=== PATIENT | male | born 1955 | race Caucasian/White ===

== ENCOUNTER → 2021-03-09 | Outpatient (CLI) | payer MEDICARE ==
[~2021-03-09] VITALS: Ht 180 cm; Wt 116.0 kg
[~2021-03-09] MED LIST: CATHETER FLUSH 10 ML SYR IV PRN; REGADENOSON 0.4 MG/5 ML SYR (LEXISCAN) IV ONE
[2021-03-09 09:41] LABS: ALANINE AMINOTRANSFERASE 22 U/L (0-55); ALBUMIN 4.2 GM/DL (3.2-4.5); ALKALINE PHOSPHATASE 60 U/L (40-136); BILIRUBIN,TOTAL 0.4 MG/DL (0.1-1.0); BUN/CREATININE RATIO 18; CALCIUM 9.5 MG/DL (8.5-10.1); CARBON DIOXIDE 25 MMOL/L (21-32); CHLORIDE 107 MMOL/L (98-107); CHOLESTEROL 114 MG/DL (< 200); CREATININE SERUM 1.05 MG/DL (0.60-1.30); GFR ESTIMATED > 60; GLUCOSE 201 MG/DL (70-105); HDL CHOLESTEROL 35 MG/DL (40-60); POTASSIUM 3.9 MMOL/L (3.6-5.0); SODIUM 139 MMOL/L (135-145); TOTAL PROTEIN 6.6 GM/DL (6.4-8.2); TRIGLYCERIDES 85 MG/DL (<150); VLDL CHOLESTEROL 17 MG/DL (5-40)
[2021-03-09 11:48] VITALS: BP 154/69
--- NOTE | 2021-03-10 11:07 | Cardiology Stress Test Report ---
Stress Test Report Date of Procedure/Referring: Date of Procedure: Mar 09, 2021 PCP Aristeo Gomez MD Admitting Physician Indications: CAD Baseline Heart Rate: 60 Baseline Blood Pressure: Blood Pressure Systolic: 154 Blood Pressure Diastolic: 69 Baseline Vitals Vital Signs Date Time Temp Pulse Resp B/P (MAP) Pulse Ox O2 Delivery O2 Flow Rate FiO2 03/09/21 11:48 60 154/69 (97) 96 Baseline EKG: Baseline EKG: NSR Summary After explaining the procedure to the patient, he signed a consent and then brought to the stress nuclear laboratory. Patient received 0.4 mg Lexiscan for stress test, ECG, heart rate and blood pressure were monitored continuously. Resting and stress dose of radio tracer were injected, imaging was acquired and reviewed in short axis, horizontal long axis and vertical long axis views. TID: 1.15 SSS: 0 SDS: 0 EF: 58 1. Patient tolerated Lexiscan well 2. Diaphragmatic attenuation with mild decreased uptake at the mid to apical inferior wall with no significant reversibility, no significant ischemia or infarction on SPECT images 3. Normal left ventricular size, EF 58% ARISTEO GOMEZ MD Mar 10, 2021 11:07
== END ==
LOC: CARD 09:30
PROVIDERS: ATTEND Internal Medicine Cardiovascular Disease
DX: I51.7 Cardiomegaly (principal); E78.2 Mixed hyperlipidemia; I25.10 Atherosclerotic heart disease of native coronary artery without angina pectoris; I10 Essential (primary) hypertension
CPT/HCPCS: 78452; 80053; 80061; 93017; 93306; A9502; 36415

== ENCOUNTER → 2021-03-23 | Outpatient (CLI) | payer MEDICARE ==
[~2021-03-23] MED LIST changes: +HOLD METFORMIN - RECEIVED CONTRAST 20 ML VIAL IV SCH; +IOHEXOL 350 MG/ML 100 ML (OMNIPAQUE 350) VIAL IV ONE; +NS 100 ML (IVPB) BAG IV ONE; -REGADENOSON 0.4 MG/5 ML SYR (LEXISCAN) IV ONE
[2021-03-23 07:41] LABS: CREATININE SERUM 0.96 MG/DL (0.60-1.30)
--- NOTE | 2021-03-23 09:01 | Diagnostic Imaging Report ---
INDICATION: Carotid stenosis. I have no previous for comparison. Post IV contrast-enhanced CT angiogram neck performed with 2-D and 3-D reconstructions. FINDINGS: The thoracic aortic arch shows scattered calcified plaque without stenosis or aneurysm. Mixed soft and hard plaque at the takeoff of the left common carotid results in less than 50% stenosis of that vessel. There are mild scattered calcified plaques in the subclavians without significant stenosis. Mixed calcified and noncalcified plaque in the proximal right vertebral artery about 1 cm beyond its origin results in approximately 60% transverse diameter stenosis. Elsewhere the bilateral cervical vertebral arteries showed scattered calcified plaques with no additional focal stenosis. The intradural vertebral arteries are patent. The basilar artery patent. The bilateral [employer] segments patent and unremarkable. Throughout the neck the bilateral common carotids revealed mild intimal thickening and scattered calcified plaque without hemodynamically significant stenosis. More substantial calcified plaques of the carotid bulbs are present, greater right than left with less than 30% stenosis at that level. There is however a severe stenosis of the right proximal internal carotid owing to a largely calcified plaque as well as some soft plaque. Stenosis is greater than 80%, proximal left ICA is stenosed by about 50-60%. Mid to distal thirds of the cervical internal carotids were widely patent. There is mild scattered calcified plaques in the intracranial ICAs without significant stenosis. The A1 segments patent. The A-comm patent. The paired anterior cerebral arteries patent. The bilateral middle cerebral arterial segments and primary branches were patent. No intracranial aneurysm, branch occlusion or vascular malformation. IMPRESSION: 1. High-grade hemodynamically significant stenosis of at least 80% proximal right internal carotid predominantly owing to calcified plaque. 2. Moderate stenosis proximal right vertebral artery just beyond its origin. 3. Moderate plaque left carotid bifurcation with mild stenosis 50-60% proximal left ICA. 4. No findings of hemodynamically clinically significant intracranial arterial pathology. Dictated by: Dictated on workstation # [id number]
== END ==
LOC: RAD 08:15
PROVIDERS: ATTEND Physician Assistant
DX: I65.23 Occlusion and stenosis of bilateral carotid arteries (principal); I65.01 Occlusion and stenosis of right vertebral artery
CPT/HCPCS: 36415; 70498; 82565; 84520

== ENCOUNTER → 2021-05-30 | Outpatient (CLI) | payer MEDICARE ==
--- NOTE | 2021-05-30 14:33 | Diagnostic Imaging Report ---
PROCEDURE: CT chest without contrast. TECHNIQUE: Multiple contiguous axial images were obtained through the chest without the use of intravenous contrast. Auto Exposure Controls were utilized during the CT exam to meet ALARA standards for radiation dose reduction. INDICATION: Shortness of breath. COMPARISON: CT of the neck dated 03/23/2021. FINDINGS: Calcified mediastinal and hilar lymph nodes are present. No pathologically enlarged lymph nodes within the chest. Postsurgical changes of a CABG. The heart is within normal limits in size. No significant pericardial effusion. No pleural effusion. The trachea is patent. No pneumothorax. Moderate background emphysematous changes, both paraseptal and centrilobular in nature. Calcified granuloma within the lingula. 0.5 cm right upper lobe pulmonary nodule is present, series 3, image 69 and series 601, image 75. Minimal scarring within the medial left upper lobe. The lungs are otherwise clear of focal pulmonary opacity. Cholelithiasis. Calcified splenic granuloma. The minimally visualized upper abdomen is otherwise unremarkable. Scattered osseous degenerative changes without acute osseous abnormality. IMPRESSION: Moderate background emphysematous changes without concerning focal pulmonary opacity. 0.5 cm right upper lobe pulmonary nodule. Recommend a followup CT of the chest in 12 months to monitor stability if no prior imaging is available to demonstrate greater than 2 years of stability for this pulmonary nodule. Cholelithiasis. Evidence of chronic granulomatous disease. Dictated by: Dictated on workstation # [id number]
== END ==
LOC: RAD 13:15
PROVIDERS: ATTEND Nurse Practitioner Family
DX: J43.9 Emphysema, unspecified (principal); B38.9 Coccidioidomycosis, unspecified; R91.1 Solitary pulmonary nodule
CPT/HCPCS: 71250

== ENCOUNTER → 2021-08-31 | Outpatient (CLI) | payer MEDICARE ==
[~2021-08-31] MED LIST changes: -CATHETER FLUSH 10 ML SYR IV PRN; -HOLD METFORMIN - RECEIVED CONTRAST 20 ML VIAL IV SCH; -IOHEXOL 350 MG/ML 100 ML (OMNIPAQUE 350) VIAL IV ONE; -NS 100 ML (IVPB) BAG IV ONE; +RT-ALBUTEROL SULF 2.5 MG/3 ML PRE-MIX VIAL INH ONE
== END ==
LOC: RT 10:45
PROVIDERS: ATTEND Internal Medicine
DX: J44.9 Chronic obstructive pulmonary disease, unspecified (principal)
CPT/HCPCS: 94060; 94726; 94729

== ENCOUNTER 2022-09-05 05:40 | Outpatient (CLI) | payer MEDICARE ==
[~2022-09-05] VITALS: Ht 180.3 cm; Wt 112.3 kg
[2022-09-10] MEDS ORDERED: ASPI-999 PO (10:03)
[2022-09-10] MEDS ORDERED: INSU100I10 SQ (10:03)
[2022-09-10] MEDS ORDERED: IRBE1TAB41 PO (10:03)
[2022-09-10] MEDS ORDERED: RT-ALBUINH INH (10:03)
[2022-09-10] MEDS ORDERED: ROSU20TA32 PO (10:03)
[2022-09-10] MEDS ORDERED: FAMO40TA6 PO (10:03)
[2022-09-10] MEDS ORDERED: TMSL.4C PO (10:03)
[2022-09-10] MEDS ORDERED: MONT-40 PO (10:03)
[2022-09-10] MEDS ORDERED: METO50TA7 PO (10:03)
[2022-09-10] MEDS ORDERED: FENO145T26 PO (10:03)
[2022-09-10] MEDS ORDERED: FLUT1DIS26 IH (10:03)
[2022-09-10] MEDS ORDERED: TIOT18CA2 IH (10:03)
[2022-09-10] MEDS ORDERED: EMPA10TA PO (10:03)
[2022-09-10] MEDS ORDERED: SILD100T67 PO (10:03)
== END 2022-09-10 10:04 | disposition home or self-care (01) ==
LOC: PREOP 05:40
PROVIDERS: ATTEND Surgery
DX: Z01.818 Encounter for other preprocedural examination (principal)